=== PATIENT | male | born 1960 | race Caucasian/White ===

== ENCOUNTER 2017-03-27 18:40 | Emergency (ER) | payer OTHER ==
[~2017-03-27] VITALS: Ht 162.6 cm; Wt 64.9 kg
[2017-03-27] MEDS ORDERED: HYDROCODONE/APAP 5-325MG TABLET PO ONE (20:00)
[2017-03-27] MEDS ORDERED: TDAP DIPH,PERTUSS,TET VAC/PF 0.5 ML DISP.SYRIN IM ONE ×2 (20:00→20:39)
[2017-03-27] MEDS ORDERED: HYDROCODONE/APAP 5-325MG TABLET ONE (20:38)
[2017-03-27] MEDS ORDERED: NEOMY/BACITRA/POLYMYXIN B OINT UD PACKET TP ONE ×2 (21:00→21:11)
[2017-03-27] MEDS ORDERED: LEVOFLOXACIN 750 MG TABLET PO ONE (21:15)
--- NOTE | 2017-03-27 21:30 | NUR ---
Pt to room c/o puncture wound to bottom of right foot s/p stepping on a nail today. Pt seen by MD. Xrays obtained. Pt medicated for discomfort. Wound cleansed and drsg applied. Crutch instruction given and pt demonstrated understanding of use. Pt stable for discharge per MD. Pt given ACI. Pt verbalized understanding of dc instructions. Pt ambulated out of er with steady gait.
[2017-03-27] MEDS ORDERED: LEVOFLOXACIN 750 MG TABLET ONE (21:31)
[2017-03-27 23:10] VITALS: BP 131/91
== END 2017-03-27 21:30 | disposition home or self-care (01) ==
LOC: ER 18:42
DX: S91.331A Puncture wound without foreign body, right foot, initial encounter (principal); F10.20 Alcohol dependence, uncomplicated; F32.9 Major depressive disorder, single episode, unspecified; Z88.8 Allergy status to other drugs, medicaments and biological substances; X58.XXXA Exposure to other specified factors, initial encounter; Y93.89 Activity, other specified; Y99.8 Other external cause status; Y92.89 Other specified places as the place of occurrence of the external cause
CPT/HCPCS: 73630; 90715; A4663

== ENCOUNTER 2017-03-31 11:03 | Emergency (ER) | payer OTHER ==
[~2017-03-31] VITALS: Ht 172.7 cm; Wt 72.6 kg
[2017-03-31] MEDS ORDERED: HYDROMORPHONE 1 MG/1 ML DISP.SYRIN IM ONE (11:30)
[2017-03-31] MEDS ORDERED: PROMETHAZINE HCL 25 MG/1 ML VIAL IM ONE (11:30)
--- NOTE | 2017-03-31 11:35 | NUR ---
PT WAS EVALUATED BY DR GREGORY. PT WAS MEDICATED ACCORDING TO ER MD ORDERS. PT TOLERATED TO MEDICATION WITHOUT COMPLICATIONS. PT WAS D/C TO HOME. D/C INSTRUCTIONS GIVEN TO THE PT. GAIT IS STABLE . PT DENIES PAIN.
[2017-03-31 11:36] VITALS: BP 136/78
[2017-03-31] MEDS ORDERED: HYDROMORPHONE 1 MG/1 ML DISP.SYRIN ONE (11:40)
[2017-03-31] MEDS ORDERED: PROMETHAZINE HCL 25 MG/1 ML VIAL ONE (11:40)
== END 2017-03-31 12:13 | disposition home or self-care (01) ==
LOC: ER 11:03
DX: L08.9 Local infection of the skin and subcutaneous tissue, unspecified (principal); F32.9 Major depressive disorder, single episode, unspecified; F10.20 Alcohol dependence, uncomplicated; Z88.8 Allergy status to other drugs, medicaments and biological substances
CPT/HCPCS: A4663; J1170; J2550

== ENCOUNTER 2017-05-10 03:16 | Emergency (ER) | payer OTHER ==
[~2017-05-10] VITALS: Ht 162.6 cm; Wt 63.5 kg
--- NOTE | 2017-05-10 03:35 | NUR ---
DR. HAMLNI AT BEDSIDE.
[2017-05-10] MEDS ORDERED: diphenhydrAMINE 50 MG CAPSULE PO ONE (03:45)
[2017-05-10] MEDS ORDERED: FLUCONAZOLE 100 MG TABLET PO ONE (03:45)
[2017-05-10] MEDS ORDERED: FLUCONAZOLE 100 MG TABLET ONE (03:53)
[2017-05-10] MEDS ORDERED: diphenhydrAMINE 25 MG CAP PO ONE (03:53)
[2017-05-10 04:16] VITALS: BP 120/85
--- NOTE | 2017-05-10 04:16 | NUR ---
Patient discharged to home in stable conditon. Written and verbal after care instructions given. Patient verbalizes understanding of instructions.
== END 2017-05-10 04:17 | disposition home or self-care (01) ==
LOC: ER 03:18
DX: S91.332A Puncture wound without foreign body, left foot, initial encounter (principal); B35.3 Tinea pedis; G89.29 Other chronic pain; F32.9 Major depressive disorder, single episode, unspecified; Z88.8 Allergy status to other drugs, medicaments and biological substances; Z59.0 Homelessness; W22.8XXA Striking against or struck by other objects, initial encounter; Y93.89 Activity, other specified; Y92.9 Unspecified place or not applicable; Y99.9 Unspecified external cause status
CPT/HCPCS: 73630; A4663; Q0163

== ENCOUNTER 2017-10-30 19:16 | Emergency (ER) | payer OTHER ==
[~2017-10-30] VITALS: Ht 162.6 cm; Wt 68.0 kg
[2017-10-30] MEDS ORDERED: HYDROCODONE/APAP 10-325 MG TABLET PO ONE (21:15)
--- NOTE | 2017-10-30 21:16 | NUR ---
Patient discharged to home in stable conditon. Written and verbal after care instructions given. Patient verbalizes understanding of instructions.
[2017-10-30] MEDS ORDERED: HYDROCODONE/APAP 10-325 MG TABLET ONE (21:24)
== END 2017-10-30 21:17 | disposition home or self-care (01) ==
LOC: ER 19:17
DX: S02.2XXA Fracture of nasal bones, initial encounter for closed fracture (principal); Z59.0 Homelessness; Z88.8 Allergy status to other drugs, medicaments and biological substances; V19.9XXA Pedal cyclist (driver) (passenger) injured in unspecified traffic accident, initial encounter; Y93.55 Activity, bike riding; Y92.410 Unspecified street and highway as the place of occurrence of the external cause; Y99.8 Other external cause status
CPT/HCPCS: 70160; A4663

== ENCOUNTER 2018-10-25 05:09 | Emergency (ER) | payer OTHER ==
[~2018-10-25] VITALS: Ht 160 cm; Wt 64.9 kg
--- NOTE | 2018-10-25 05:21 | NUR ---
Pt ambulates to ER with c/o suicidal ideation "for a couple days now." Has no specific plan. Denies homicidal ideation. Denies auditory/visual hallucinations. 1:1 sitter at bedside. Suicide precautions implemented. All pt belongings placed in nursing station.
--- NOTE | 2018-10-25 05:25 | NUR ---
Dr. Jesús DAVIES MD at bedside for MSE.
--- NOTE | 2018-10-25 05:27 | NUR ---
NURSING ROADS SUPERINTENDENT NOTIFIED, 1:1 SITTER AT BEDSIDE.
[2018-10-25 06:09] LABS: CARBON DIOXIDE 31 mmol/L (21-32); CHLORIDE 100 mmol/L (98-107); CREATININE 0.9 mg/dL (0.6-1.3); GLUCOSE 85 mg/dL (74-106); POTASSIUM 3.7 mmol/L (3.5-5.1); UREA NITROGEN, BLOOD 18 mg/dL (7-18)
[2018-10-25 06:16] LABS: BASOPHILS % (AUTO) 0.5 % (0.0-2.0); EOSINOPHILS # (AUTO) 0.2 K/uL (0.0-0.7); EOSINOPHILS % (AUTO) 3.2 % (0.0-7.0); HEMATOCRIT 35.8 % (36.7-47.1); HEMOGLOBIN 12.6 g/dL (12.5-16.3); LYMPHOCYTES # (AUTO) 1.1 K/uL (20.0-40.0); LYMPHOCYTES % (AUTO) 21.3 % (20.5-51.5); MEAN CORPUSCULAR HGB CONC 35 g/dL (32.5-36.3); MEAN CORPUSCULAR VOLUME 93.5 fL (73.0-96.2); MONOCYTES # (AUTO) 0.7 K/uL (2.0-10.0); MONOCYTES % (AUTO) 12.8 % (0.0-11.0); NEUTROPHILS # (AUTO) 3.3 K/uL (1.8-8.9); NEUTROPHILS % (AUTO) 62.2 % (38.5-71.5); PLATELET COUNT (AUTO) 247 K/uL (152-348); RED BLOOD CELL COUNT(AUTO) 3.83 MIL/uL (4.06-5.63); WHITE BLOOD COUNT (AUTO) 5.3 K/uL (3.6-10.2)
[2018-10-25 06:22] LABS: ALANINE AMINOTRANSFERASE 39 U/L (16-63); ALKALINE PHOSPHATASE 83 U/L (50-136); ASPARTATE AMINOTRANSFERASE 24 U/L (15-37); BILIRUBIN,DIRECT 0.2 mg/dL (0.0-0.2); BILIRUBIN,TOTAL 1.2 mg/dL (0.2-1.0); TOTAL PROTEIN, SERUM 7.8 g/dL (6.4-8.2)
[2018-10-25 06:24] LABS: ACETAMINOPHEN < 2.0 ug/mL (10-30)
--- NOTE | 2018-10-25 06:28 | NUR ---
Pt requested food. Provided pt sandwich.
[2018-10-25 06:33] LABS: ETHANOL < 3 MG/DL (0-0)
[2018-10-25 06:38] LABS: *AMPHETAMINE, URINE POSITIVE (NEGATIVE); *BARBITURATE, URINE NEGATIVE (NEGATIVE); *CANNABINOID, URINE NEGATIVE (NEGATIVE); *COCCAINE, URINE NEGATIVE (NEGATIVE); *OPIATE, URINE NEGATIVE (NEGATIVE); *PHENCYCLIDINE SCREEN,URINE NEGATIVE (NEGATIVE)
--- NOTE | 2018-10-25 07:01 | NUR ---
Called Bubba Ortiz LCSW, for PET evaluation. ETA 1 hr.
--- NOTE | 2018-10-25 07:02 | NUR ---
Report given to day shift nurse.
--- NOTE | 2018-10-25 08:12 | NUR ---
Patient is AOx4, eating breakfast tray with good appetite, NAD.
--- NOTE | 2018-10-25 09:49 | NUR ---
Patient ambulated to bathroom with brisk steady gait.
--- NOTE | 2018-10-25 13:52 | NUR ---
MONSE, FROM [facility] [address] CALLED TO JEANA DAVIES. SHE STATED THAT THEY CAN NOT ACCEPT THE PT BECAUSE HE IS NOT SUICIDAL, "HE DOES NOT HAVE A PLAN". DR BONILLA NOTIFIED. PT STATED THAT HE IS "NOT SAFE TO HIMSELF" AND ASKED TO CONTACT TO [facility] AGAIN. [facility] WAS CONTACTED BY MARICHUY VALLADARES, HE IS GOING TO CALL TO [facility] AND EXPLAIN SITUATION TO THEM. PT IS RESTING IN ROOM #2B. NO S/S OF ACUTE DISTRESS AT THIS TIME. CONTINUE TO MONITOR THE PT.
--- NOTE | 2018-10-25 16:05 | NUR ---
Received telephone call from Marquise from [facility] pt's facesheet faxed to [phone] per his request.
--- NOTE | 2018-10-25 17:19 | NUR ---
Patient added that he is allergic to legumes, strawberry & animal meat. "I don't eat meat from live animals. I can do milk, eggs & cottage cheese." per patient. [facility] was updated accordingly.
--- NOTE | 2018-10-25 18:51 | NUR ---
Patient Tranfers to outside Facility: [facility] Physician: Newton accpereji patient Location: 652-A RN: Layne nation hands off report
--- NOTE | 2018-10-25 18:57 | NUR ---
Nursing fur dressing supervisor Yessenia emmanueled the S ambulance transfer to [facility] [place]. [facility] dispatcher Adore gave YHG=[phone], ride# [id number].
--- NOTE | 2018-10-25 19:47 | NUR ---
Assumed care of pt., received report from Morena,
--- NOTE | 2018-10-25 20:36 | NUR ---
Spoke to Jack at [facility] , new ETA changes to @ [phone].
--- NOTE | 2018-10-25 20:40 | NUR ---
[facility] contacted - new ETA [phone]
--- NOTE | 2018-10-25 22:06 | NUR ---
Patient is screaming, threatening security staff. Patient states " I will get loud if I want to"
--- NOTE | 2018-10-25 22:10 | NUR ---
Spoke to [facility], patient picking supervisor ETA is 20 minutes.
--- NOTE | 2018-10-25 22:45 | NUR ---
Amb[facility] here for transport, pt. taken off unit, no acute distress,
== END 2018-10-25 22:48 | disposition short-term general hospital (02) ==
LOC: ER 05:10
DX: R45.851 Suicidal ideations (principal); F32.9 Major depressive disorder, single episode, unspecified; F15.10 Other stimulant abuse, uncomplicated; Z88.8 Allergy status to other drugs, medicaments and biological substances; Z59.0 Homelessness
CPT/HCPCS: 36415; 80048; 80076; 80307; 85025; 99285; G0480 ×2; G0481; A4663

== ENCOUNTER 2018-12-06 03:53 | Emergency (ER) | payer OTHER ==
[~2018-12-06] VITALS: Ht 162.6 cm; Wt 63.5 kg
--- NOTE | 2018-12-06 04:05 | NUR ---
Patient ambulated with stable gait. AAxO x4. Speech is clear and is able to speak in complete sentences. No neuro deficits noted. Patient came in with c/o neck pain x 1.5 months. Pain 8/10. Denies any recent surgery, or any injury. Patient stated, "I slept in my car wrong, maybe that's why my neck hurts". No respiratory distress noted. No SOB, has intermittent cough. No cardiovascular distress noted, all pulses palpable. No GI/. Fall precautions implemented per protocol. Bed in lowest position, side rails up x2, call light within reach.
[2018-12-06] MEDS ORDERED: OXYCODONE/APAP 5-325 MG TABLET ONE (04:09)
[2018-12-06] MEDS ORDERED: CYCLOBENZAPRINE HCL 10 MG TABLET PO ONE (04:15)
[2018-12-06] MEDS ORDERED: OXYCODONE/APAP 5-325 MG TABLET PO ONE (04:15)
--- NOTE | 2018-12-06 05:14 | NUR ---
Patient asleep in bed. VSS, SATYA.
--- NOTE | 2018-12-06 05:26 | NUR ---
Patient discharged to home in stable conditon. Written and verbal after care instructions given. Patient verbalizes understanding of instructions. Patient ambulated out with stable gait.
[2018-12-06 05:27] VITALS: BP 138/87
== END 2018-12-06 05:28 | disposition home or self-care (01) ==
LOC: ER 03:55
DX: G89.29 Other chronic pain (principal); M54.2 Cervicalgia; F15.10 Other stimulant abuse, uncomplicated; Z88.8 Allergy status to other drugs, medicaments and biological substances; Z91.018 Allergy to other foods
CPT/HCPCS: 72125; A4663

== ENCOUNTER 2019-01-16 23:30 | Emergency (ER) | payer OTHER ==
[~2019-01-16] VITALS: Ht 162.6 cm; Wt 64.9 kg
--- NOTE | 2019-01-16 23:40 | NUR ---
Patient ambulated with stable gait. AAOX4. Speech clear, speaks in complete sentences. No neuro deficits. Patient came in for c/o BLE itching on the feet. Respiratory even and unlabored. No cardiovascular distress. No GI/ distress. Patient in bed at lowest position, side rails upx2, call light within reach. Fall precautions implemented per protocol.
[2019-01-16] MEDS ORDERED: OXYCODONE/APAP 5-325 MG TABLET PO ONE (23:45)
[2019-01-16] MEDS ORDERED: HYDROCODONE/APAP 5-325MG TABLET ONE (23:47)
--- NOTE | 2019-01-16 23:51 | NUR ---
Patient discharged to home in stable conditon. Written and verbal after care instructions given. Patient verbalizes understanding of instructions. Patient stated he stays with his friend. Ambulated with stable gait.
[2019-01-16 23:52] VITALS: BP 104/63
== END 2019-01-16 23:53 | disposition home or self-care (01) ==
LOC: ER 23:32
DX: B35.3 Tinea pedis (principal); Z88.8 Allergy status to other drugs, medicaments and biological substances; Z91.018 Allergy to other foods
CPT/HCPCS: A4663

== ENCOUNTER 2019-01-22 12:14 | Emergency (ER) | payer OTHER ==
[~2019-01-22] VITALS: Ht 162.6 cm; Wt 64.9 kg
--- NOTE | 2019-01-22 12:38 | NUR ---
Patient is eating lunch tray with good appetite, for disposition.
--- NOTE | 2019-01-22 12:43 | NUR ---
Patient went out of our ER department saying,"I want to smoke." Patient was notified re: no smoking policy in & around the hospital areas. Patient continued to walk out of our ER department to smoke. Dr Terrell notified.
--- NOTE | 2019-01-22 12:50 | NUR ---
PATIENT WAS MSE BY DR TOBAR IN ROOM 04A.
[2019-01-22] MEDS ORDERED: OXYCODONE/APAP 5-325 MG TABLET PO ONE (13:00)
[2019-01-22] MEDS ORDERED: OXYCODONE/APAP 5-325 MG TABLET ONE (13:00)
--- NOTE | 2019-01-22 13:07 | NUR ---
Patient discharged to home in stable conditon. Written and verbal after care instructions given. Patient verbalizes understanding of instructions.
[2019-01-22 13:08] VITALS: BP 111/68
== END 2019-01-22 13:09 | disposition home or self-care (01) ==
LOC: ER 12:14
DX: M54.5 Low back pain (principal); Z88.8 Allergy status to other drugs, medicaments and biological substances; Z91.018 Allergy to other foods; Z59.0 Homelessness
CPT/HCPCS: A4663

== ENCOUNTER 2019-02-20 11:43 | Emergency (ER) | payer OTHER ==
--- NOTE | 2019-02-20 12:05 | NUR ---
Attempted to triage pt, pt was not found in ER waiting room.
== END 2019-02-20 12:08 | disposition left against medical advice (07) ==
LOC: ER 11:44
DX: Z53.21 Procedure and treatment not carried out due to patient leaving prior to being seen by health care provider (principal)

== ENCOUNTER 2019-02-20 12:20 | Emergency (ER) | payer OTHER ==
[~2019-02-20] VITALS: Ht 165.1 cm; Wt 65.8 kg
--- NOTE | 2019-02-20 12:42 | NUR ---
BEATRIZ MAS. DR VENCES NOTIFIED.
== END 2019-02-20 12:48 | disposition left against medical advice (07) ==
LOC: ER 12:20
DX: G89.29 Other chronic pain (principal); M54.5 Low back pain; Z88.8 Allergy status to other drugs, medicaments and biological substances; Z91.018 Allergy to other foods; Z59.0 Homelessness
CPT/HCPCS: A4663

== ENCOUNTER 2019-03-25 17:42 | Emergency (ER) | payer OTHER ==
[~2019-03-25] VITALS: Ht 182.9 cm; Wt 63.5 kg
[2019-03-25 17:59] LABS: BASOPHILS % (AUTO) 0.6 % (0.0-2.0); EOSINOPHILS # (AUTO) 0.1 K/uL (0.0-0.7); EOSINOPHILS % (AUTO) 2.9 % (0.0-7.0); HEMATOCRIT 40.8 % (36.7-47.1); HEMOGLOBIN 13.6 g/dL (12.5-16.3); LYMPHOCYTES # (AUTO) 0.6 K/uL (20.0-40.0); LYMPHOCYTES % (AUTO) 12.9 % (20.5-51.5); MEAN CORPUSCULAR HEMOGLOBIN 31.8 uug (23.8-33.4); MEAN CORPUSCULAR HGB CONC 33 g/dL (32.5-36.3); MEAN CORPUSCULAR VOLUME 95.1 fL (73.0-96.2); MONOCYTES # (AUTO) 0.3 K/uL (2.0-10.0); MONOCYTES % (AUTO) 6.1 % (0.0-11.0); NEUTROPHILS # (AUTO) 3.5 K/uL (1.8-8.9); NEUTROPHILS % (AUTO) 77.5 % (38.5-71.5); PLATELET COUNT (AUTO) 267 K/uL (152-348); RED BLOOD CELL COUNT(AUTO) 4.29 MIL/uL (4.06-5.63); WHITE BLOOD COUNT (AUTO) 4.5 K/uL (3.6-10.2)
[2019-03-25] MEDS ORDERED: DEXTROSE 10 % IN WATER 250 ML BAG IV ONE (18:00)
[2019-03-25] MEDS: DEXTROSE 50% 50 ML DISP.SYRIN IV ONE ×2 (18:00→18:05)
[2019-03-25] MEDS ORDERED: IV NORMAL SALINE 1000 ML BAG IV ONE (18:00)
[2019-03-25 18:09] LABS: CARBON DIOXIDE 28 mmol/L (21-32); CHLORIDE 106 mmol/L (98-107); CREATININE 1.1 mg/dL (0.6-1.3); GLUCOSE 86 mg/dL (74-106); POTASSIUM 3.5 mmol/L (3.5-5.1); UREA NITROGEN, BLOOD 17 mg/dL (7-18)
[2019-03-25 18:11] LABS: ETHANOL < 3 MG/DL (0-0)
--- NOTE | 2019-03-25 18:11 | NUR ---
PT [address]IB [address] PT WAS REPORTED WITH BIZZARRE/AGGRESSIVE BEHAVIOR. PT WAS GIVEN VERSED 5MG IM, RIGHT ARM LEATHER GRADER. AT THE TRIAGE, PT NON-RESPONSIVE. PT ON NC 2 LITRE,SAT 99%. BREATHING NORMALLY.
[2019-03-25 18:15] LABS: ALANINE AMINOTRANSFERASE 29 U/L (16-63); ALKALINE PHOSPHATASE 74 U/L (50-136); ASPARTATE AMINOTRANSFERASE 25 U/L (15-37); BILIRUBIN,DIRECT 0.2 mg/dL (0.0-0.2); BILIRUBIN,TOTAL 1.1 mg/dL (0.2-1.0); TOTAL PROTEIN, SERUM 6.9 g/dL (6.4-8.2)
[2019-03-25 18:16] LABS: ACETAMINOPHEN < 2.0 ug/mL (10-30)
--- NOTE | 2019-03-25 19:10 | NUR ---
D10W 250 ML, FROM PHARMACY, INFUSED PER MD ORDER.
--- NOTE | 2019-03-25 19:10 | NUR ---
HANDS OFF CARE GIVEN TO MARICHUY ROPER
[2019-03-25] MEDS: DEXTROSE 5% IV ONE ×2 (19:12→19:17)
--- NOTE | 2019-03-25 19:15 | NUR ---
Assumed care of patient. No acute distress noted.
--- NOTE | 2019-03-25 19:39 | NUR ---
bs 140mg/dl
--- NOTE | 2019-03-25 20:23 | NUR ---
Patient in bed, no acute distress noted. VSS. Respirations even and unlabored. No cardiovascular distress
[2019-03-25 20:50] LABS: *BILIRUBIN,URIN 1+ (NEGATIVE); *BLOOD, URINE NEGATIVE (NEGATIVE); *CLARITY,URINE CLEAR (CLEAR); *COLOR,URINE YELLOW (YELLOW); *KETONES,URINE TRACE (NEGATIVE); LEUKOCYTE ESTERASE ,URINE NEGATIVE (NEGATIVE); NITRITE, URINE NEGATIVE (NEGATIVE); PH,URINE 6.5 (5.0-8.0); UGLUCOSE 1+ (NEGATIVE)
[2019-03-25 20:52] LABS: BACTERIA,URINE NONE SEEN /HPF (NONE SEEN); RBC,URINE 0-3 /HPF (0-3); SQUAMOUS EPITHELIAL CELL,UR FEW /HPF (NONE SEEN); WBC,URINE 0-3 /HPF (0-3)
[2019-03-25] MEDS ORDERED: diphenhydrAMINE 50 MG/1 ML VIAL ONE (20:57)
[2019-03-25 20:58] LABS: *AMPHETAMINE, URINE POSITIVE (NEGATIVE); *BARBITURATE, URINE NEGATIVE (NEGATIVE); *CANNABINOID, URINE NEGATIVE (NEGATIVE); *COCCAINE, URINE NEGATIVE (NEGATIVE); *OPIATE, URINE NEGATIVE (NEGATIVE); *PHENCYCLIDINE SCREEN,URINE NEGATIVE (NEGATIVE)
[2019-03-25] MEDS ORDERED: OLANZAPINE 10 MG VIAL IM ONE ×2 (20:58→21:00)
[2019-03-25 21:00] LABS: THYROID STIMULATING HORMONE 0.357 mIU/mL (0.358-3.740)
[2019-03-25] MEDS ORDERED: diphenhydrAMINE 50 MG/1 ML VIAL IM ONE (21:00)
--- NOTE | 2019-03-25 21:11 | NUR ---
Patient stood up, stated " I want to ", and started banging his head on the wall. Security was called to bedside. patient assisted to the bed and provided IM medication. ER MD is aware. Will continue to monitor.
[2019-03-25] MEDS ORDERED: LORAZEPAM 2 MG/1 ML VIAL ONE ×2 (21:29→22:16)
--- NOTE | 2019-03-25 21:29 | NUR ---
Patient remains agitated, screaming, yelling at staff.
[2019-03-25] MEDS ORDERED: LORAZEPAM 2 MG/1 ML VIAL IM ONE (21:30)
[2019-03-25] MEDS ORDERED: LORAZEPAM 2 MG/1 ML VIAL IV ONE (22:15)
--- NOTE | 2019-03-25 22:16 | NUR ---
Patient continues to scream in bed, direct observation ongoing. Patient denies HI/AH/VH , he now denies SI and denies plan
--- NOTE | 2019-03-25 23:24 | NUR ---
Patient in bed, no acute distress noted. VSS
--- NOTE | 2019-03-26 00:09 | NUR ---
Patient remains in bed, no acute distress noted. VSS
[2019-03-26] MEDS ORDERED: LORAZEPAM 2 MG/1 ML VIAL ONE (00:56)
[2019-03-26] MEDS ORDERED: LORAZEPAM 2 MG/1 ML VIAL IV ONE (01:15)
--- NOTE | 2019-03-26 01:58 | NUR ---
Patient continues to attempt to remove monitor, SaO2, Ivs, Patient is nonviolent medical restraints. Well tolerated. All patient needs attended and met. Elimination present.
--- NOTE | 2019-03-26 02:59 | NUR ---
Patient in bed , attempting to remove IV at this time. Direct observation ongoing will continue to monitor.
--- NOTE | 2019-03-26 03:51 | NUR ---
Respirations even and unlabored. No cardiovacular distress noted. VSS
--- NOTE | 2019-03-26 04:21 | NUR ---
Medical Restraints removed at this time.
--- NOTE | 2019-03-26 05:21 | NUR ---
Patient in bed , no acute distress noted.
--- NOTE | 2019-03-26 06:31 | NUR ---
Patient is responsive to verbal and tactile stimuli. He is currrently unable to ambulate with stable gait due to heavy intoxication. Will continue to monitor patient . Plan of care: Metabolize to discharge.
--- NOTE | 2019-03-26 06:55 | NUR ---
Report given to Julia BENEDICT
--- NOTE | 2019-03-26 06:58 | NUR ---
Report to Gauri BENEDICT
[2019-03-26] MEDS ORDERED: OLANZAPINE 10 MG VIAL IM ONE ×2 (07:15→14:16)
[2019-03-26] MEDS ORDERED: LORAZEPAM 2 MG/1 ML VIAL IM ONE (07:15)
--- NOTE | 2019-03-26 07:55 | NUR ---
Pt resting on frequent rounds, continue w/ vital signs monitoring.
--- NOTE | 2019-03-26 12:02 | NUR ---
DR Escoto medically cleared pt.
--- NOTE | 2019-03-26 12:23 | NUR ---
Placed a Call to [employer](fast [employer] worker), for heomeless assist.
--- NOTE | 2019-03-26 13:10 | NUR ---
Called Bubba Ortiz LCSW from PET. ETA 15 min.
--- NOTE | 2019-03-26 13:30 | NUR ---
Bubba Ortiz from PET at the bedside for psych eval.
--- NOTE | 2019-03-26 14:00 | NUR ---
Pt placed on 5150 hold by PET belt lacer, for GD and DTO.
--- NOTE | 2019-03-26 15:20 | NUR ---
Pt provided fluids but too disoriented to drink. VSS.
--- NOTE | 2019-03-26 20:00 | NUR ---
Received patiet in bed sleeping with 1:! sitter at bedside. No respiratory distress noted with no chief complaints. Patient ocassionally moves in bed independently.
--- NOTE | 2019-03-26 22:58 | NUR ---
Spoke to Bubba, from crisis team regarding placement and transfer for the patient to [facility]. Patient was declined but they will try again tomorrow if the facilty has discharged any current patients. Crisis team will follow up with facility tomorrow.
--- NOTE | 2019-03-27 03:05 | NUR ---
patient woke up agiatated and screaming "wanting hot foods." patient got out of bed. Patient was given snacks: sandwich and fluids. Able to feed self and consumed 100% of meal.
[2019-03-27] MEDS ORDERED: LORAZEPAM 2 MG/1 ML VIAL IV ONE (03:15)
--- NOTE | 2019-03-27 03:19 | NUR ---
sleeping in bed with 1:1 sitter at bedside.
--- NOTE | 2019-03-27 07:30 | NUR ---
Hands off report received from manager shift nurses. Patient is still waiting for transfer information to another [facility] facility. 1:1 sitter maintained. Breakfast tray odered.
--- NOTE | 2019-03-27 08:51 | NUR ---
Patient is eating breakfast with good appetite. NAD, calm & cooperative@this time.
[2019-03-27] MEDS ORDERED: OXYCODONE/APAP 5-325 MG TABLET PO ONE (09:00)
--- NOTE | 2019-03-27 09:00 | NUR ---
Patient was seen standing near the [facility], voiding by urinal.
[2019-03-27] MEDS ORDERED: OXYCODONE/APAP 5-325 MG TABLET ONE (09:03)
--- NOTE | 2019-03-27 11:28 | NUR ---
Patient intermittently yells for his needs (..."water!",... "pee!"). Reorientation done. Behaviour limitation done. Comfort measures maintained. PREP PERSON-sitter is at bedside@all times.
[2019-03-27] MEDS ORDERED: OLANZAPINE 10 MG VIAL IM ONE ×2 (11:40→11:45)
--- NOTE | 2019-03-27 12:52 | NUR ---
Patient ate lunch with fair appetite, pending S ambulance crop picker still
--- NOTE | 2019-03-27 12:53 | NUR ---
Patient Tranfers to outside Facility: [facility] Physician: Dr St accepted patient Location: [address] [place] [address] Nurse: Pamela accepted [email or web address]. [facility] BLS trip#[id number] ambulance ETA:1245pm
--- NOTE | 2019-03-27 13:10 | NUR ---
Patient refused vital signs to be taken@this time
--- NOTE | 2019-03-27 13:55 | NUR ---
Patient refused vital signs to be taken again, notified. Hands off report given to OLMAN Santacruz of [facility] ambulance.
== END 2019-03-27 13:57 | disposition short-term general hospital (02) ==
LOC: ER 17:42
DX: F29 Unspecified psychosis not due to a substance or known physiological condition (principal); F32.9 Major depressive disorder, single episode, unspecified; R41.82 Altered mental status, unspecified; Z88.8 Allergy status to other drugs, medicaments and biological substances; Z91.018 Allergy to other foods; Z79.899 Other long term (current) drug therapy; Z59.0 Homelessness
CPT/HCPCS: 36415; 70450; 80048; 80076; 80307; 81000; 81001; 82550; 82962 ×2; 84443; 84484; 85025; 85730; 93005; 96361; 96372 ×5; 96374; 96376; 99285; G0480 ×2; G0481; J1200; J2060 ×3; J3490; 70030-TC; A4663; C1758; J2358; J7030